=== PATIENT | female | born 1970 | race American Indian/Alaskan Native ===

== ENCOUNTER 2016-06-01 06:31 | Observation (INO) | payer BC ==
--- NOTE | 2016-05-31 08:39 | History and Physical Report ---
History of Present Illness Date of examination: 05/26/16 Chief complaint: Menorrhagia, uterine fibroids and endometrial mass History of present illness: Past History : 2 Term Births: 1 Living Children: 1 Elect. Ab: 1 # 1 Delivery type: PRIMER BOXER History Uterine Surgery (not C/S): negative Operations: Tubal Ligation Essure Hospitalizations: negative Anesthesia Complications: negative Abnormal PAP: positive Uterine Anomaly: negative MISAEL Exposure: negative Infertility: negative Infection History HIV Risk Eval: no Hep B Immunized: no TB exposure: no Personal hx. of genital herpes: no Partner hx. of genital herpes: no Rash/viral illness since LMP: no Hx of STD: HSV Active Medications: OXYCODONE-ACETAMINOPHEN 5-325 MG TABS (OXYCODONE-ACETAMINOPHEN) 1-2po q6h IBUPROFEN 800 MG TABS (IBUPROFEN) 1 po TID (PRN) Current Allergies (reviewed today): No known allergies Past Medical History: Reviewed history from 07/11/2015 and no changes required: Ulcerative colitis remission Past Surgical History: Reviewed history from 04/30/2011 and no changes required: Tubal Ligation Essure Family History Summary: Other family member - Has No Family History of Uterine Cancer - Entered On: 05/31 Other family member - Has No Family History of Stomach Cancer - Entered On: 05/31 Other family member - Has No Family History of Small Bowel Cancer - Entered On: 05/31/2016 Other family member - Has No Family History of Pancreatic Cancer - Entered On: Other family member - Has No Family History of Kidney/Urinary Tract Cancer - Entered On: 05/31/2016 Other family member - Has No Family History of Brain Cancer - Entered On: 2016 Other family member - Has No Family History of Biliary Tract Cancer - Entered On : 05/31/2016 General Comments - FH: No Family History of Breast Cancer No Family History of Colon Cancer No Family History of Ovarian Cancer No Family History of DVT/PE on OCP Social History: Reviewed history from 07/11/2015 and no changes required: Patient is Smoking History: Patient has never smoked. Risk Factors: Smoked Tobacco Use: Never smoker Alcohol use: no Mammogram History: Date of Last Mammogram: 07/22/2015 PAP Smear History: Date of Last PAP Smear: 07/11/2015 Previous Tobacco Use: Signed On - 04/21/2016 Smoked Tobacco Use: Never smoker Drug use: no HIV high-risk behavior: no Previous Alcohol Use: Signed On - 04/21/2016 Alcohol use: no Exercise: yes Times per week: 5 Type of Exercise: rarely Seatbelt use: 100 % Colonoscopy History: Date of Last Colonoscopy: 04/18/2012 Mammogram History: Date of Last Mammogram: 07/22/2015 PAP Smear History: Date of Last PAP Smear: 07/11/2015 Review of Systems General Denies fever, chills, sweats, anorexia, fatigue, weakness, malaise, weight loss and sleep disorder. Complains of menorrhagia. Denies vaginal discharge, incontinence, dysuria, hematuria, urinary frequency, amenorrhea, abnormal vaginal bleeding, pelvic pain, genital sores, decreased libido, painful periods, painful sex, urinary urgency, hot flashes, vaginal dryness, vaginal itching and vaginal odor. CV Denies chest pains, palpitations, syncope, dyspnea on exertion, orthopnea, PND and peripheral edema. Resp Denies cough, dyspnea at rest, excessive sputum, hemoptysis, wheezing and pleurisy. GI Denies nausea, vomiting, diarrhea, constipation, change in bowel habits, abdominal pain, melena, hematochezia, jaundice, gas/bloating, indigestion/ heartburn, dysphagia and odynophagia. Endo Denies cold intolerance, heat intolerance, polydipsia, polyphagia, polyuria and unusual weight change. Breast Denies left breast lump, right breast lump, nipple discharge, bloody discharge from nipple, breast pain, abnormal mammogram and breast enlargement. MS Denies back pain, joint pain, joint swelling, muscle cramps, muscle weakness, stiffness, arthritis, sciatica, restless legs, leg pain at night and leg pain with exertion. Derm Denies rash, itching, dryness and suspicious lesions. Neuro Denies paralysis, paresthesias, headache, seizures, tremors, vertigo, transient blindness, frequent falls, frequent headaches and difficulty walking. Psych Denies depression, anxiety, irritability and mood swings. Eyes Denies blurring, diplopia, irritation, discharge, vision loss, eye pain and photophobia. ENT Denies earache, ear discharge, tinnitus, decreased hearing, nasal congestion, nosebleeds, sore throat and hoarseness. Allergy Denies urticaria, allergic rash, hay fever and recurrent infections. Heme Denies abnormal bruising, bleeding and enlarged lymph nodes. Physical Exam Appearance: well developed, well nourished, no acute distress Other Exams Lungs: no rales, rhonchi, or wheezes Heart: S1, S2, no murmur, rub, or gallop Abdomen: soft, non-tender, no masses, bowel sounds normal Skin: no ulcers, xanthomas Lymph: no cervical, axillary, or inguinal adenopathy Extremities: normal alignment, no joint enlargement, crepitus, masses or tenderness; normal tone and strength Genitourinary Exam Vulva: normal, no lesions or discharge Urethral meatus: normal size and location, no lesions or discharge Urethra: no discharge Bladder: no cystocele Vagina: normal appearance, no discharge, lesions. No evidence of cystocele or rectocele. Cervix: normal appearance, no lesions, no discharge Uterus: normal position, midline, mobile Adnexa: no masses or tenderness Impression & Recommendations: Problem # 1: Excessive and frequent menstruation with irregular cycle (ICD- 626.6) (LAX27-O13.1) Her updated medication list for this problem includes: Ibuprofen 800 Mg Tabs (Ibuprofen) ..... 1 po tid (prn) Consent reviewed and signed . Possible laparoscopy or laparotomy explained to patient. The risks and alternatives for this surgery were reviewed with the patient. She was informed of possible bleeding, infection, injury to bowel, bladder, ureters or other adjacent organs.She desires ovarian conservation. She was informed she may require surgery later to have her ovaries removed for a benign or mailgnant condition The patient was instructed/informed the following: The normal length of hospital stay for this procedure. Nothing to eat or drink after midnight the evening prior to surgery. Clear liquids the day before surgery. Fleets enema the day prior to surgery. Pre-op instruction sheets given. Wound care instructions given. Infection precautions reviewed, patient to call for any signs or symptoms of infection. The usual discomforts associated with this procedure were detailed. Proper use of pain medicines was reviewed. Patient was given ample opportunity to have all her questions answered before signing informed consent. Problem # 2: Fibroids of uterus, Submucosal (ICD-218.0) (PIS99-T58.0) Her updated medication list for this problem includes: Oxycodone-acetaminophen 5-325 Mg Tabs (Oxycodone-acetaminophen) ..... 1-2po q6h Ibuprofen 800 Mg Tabs (Ibuprofen) ..... 1 po tid (prn) Problem # 3: Endometrial mass (ICD-236.0) (AYE66-N62.0) Medications Added to Medication List This Visit: 1) Oxycodone-acetaminophen 5-325 Mg Tabs (Oxycodone-acetaminophen) .... 1-2po q6h 2) Ibuprofen 800 Mg Tabs (Ibuprofen) .... 1 po tid (prn) Prescriptions: OXYCODONE-ACETAMINOPHEN 5-325 MG TABS (OXYCODONE-ACETAMINOPHEN) 1-2po q6h #30 x 0 Entered and Authorized by: Naomi Madrigal MD Method used: Print then Give to Patient RxID: [id number] IBUPROFEN 800 MG TABS (IBUPROFEN) 1 po TID (PRN) #30 x 1 Entered and Authorized by: Naomi Madrigal MD Method used: Print then Give to Patient Medications and Allergies Allergies Allergy/AdvReac Type Severity Reaction Status Date / Time No Known Allergies Allergy Unverified 05/26/16 13:59 Home Medications Medication Instructions Recorded Confirmed Last Taken Type No Known Home Medications [No 05/28/16 05/28/16 Unknown History Reported Home Medications] Assessment and Plan - Patient Problems (1) Excessive and frequent menstruation with irregular cycle Status: Acute (2) Neoplasm of uncertain behavior of endometrium Status: Acute (3) Submucous leiomyoma of uterus Status: Acute (4) Intramural leiomyoma of uterus Status: Acute
[2016-05-31 10:22] LABS: Hematocrit 35.9 % (30.3-42.9); Hemoglobin 11.5 gm/dl (10.1-14.3); Mean Corpuscular HGB Conc 32 % (30-34); Mean Corpuscular Volume 80 fl (79-97); Platelet Count 281 K/mm3 (140-440); Red Blood Count 4.48 M/mm3 (3.65-5.03); Red Cell Distribution Width 14.8 % (13.2-15.2); White Blood Count 8.2 K/mm3 (4.5-11.0)
--- NOTE | 2016-05-31 10:27 | Anesthesia Consultation ---
Anesthesia Consult and Med Hx Date of service: 05/31/16 - Airway Anesthetic Teeth Evaluation: Good, Caps, Crowns ROM Head & Neck: Adequate Mental/Hyoid Distance: Adequate Mallampati Class: Class II Intubation Access Assessment: Probably Good - Pulmonary Exam CTA: Yes - Cardiac Exam Cardiac Exam: RRR - Pre-Operative Health Status ASA Pre-Surgery Classification: ASA2 Proposed Anesthetic Plan: General Nerve Block: TAP - Pulmonary Hx Smoking: No Hx Asthma: No Hx Sleep Apnea: No - Cardiovascular System Hx Hypertension: No Hx Coronary Artery Disease: No - Central Nervous System Hx Seizures: No CVA: No Hx Psychiatric Problems: No - Gastrointestinal Hx Gastroesophageal Reflux Disease: Yes - Endocrine Hx Renal Disease: No Hx Cirrhosis: No Hx Insulin Dependent Diabetes: No - Hematic Hx Anemia: Yes - Other Systems Hx Cancer: No Hx Obesity: Yes
[2016-05-31 10:39] LABS: Mean Corpuscular Hemoglobin 26 pg (28-32)
[~2016-06-01 06:31] MED LIST: ANCEF/STERILE WATER 2 GM/20 ML 2 GM/20 ML SYRINGE IV NR; NACL 0.9% 1000 ML 1,000 ML IV SCH; NEURONTIN PO NR; PEPCID PO NR; TRANSDERM-SCOP TD NR; VERSED IV NR
[2016-06-01] MEDS ORDERED: DECADRON ONE ×2 (06:33→08:34)
[2016-06-01] MEDS ORDERED: XYLOCAINE 1% 20 mL ONE (06:33)
[2016-06-01] MEDS ORDERED: CLONIDINE 1,000 MCG/10 ML VIAL EP ONE (06:34)
[2016-06-01] MEDS ORDERED: MARCAINE-EPI/PF 0.5%-1:200,000 INFILTRATI ONE (06:34)
[2016-06-01] MEDS ORDERED: MARCAINE-EPI 0.5%-1:200,000 INFILTRATI ONE (06:34)
[2016-06-01] MEDS ORDERED: SUBLIMAZE ONE (07:10)
[2016-06-01] MEDS ORDERED: DIPRIVAN 10 MG/ML IV ONE (07:12)
[2016-06-01] MEDS ORDERED: ZEMURON IV ONE (07:18)
[2016-06-01] MEDS: SUBLIMAZE IV NR ×2 (07:19→07:21)
[2016-06-01] MEDS ORDERED: XYLOCAINE MPF 2% ONE (07:20)
--- NOTE | 2016-06-01 07:35 | Admit Criteria Form ---
Admission Criteria Documentation: AMBULATORY SURGERY EXCEPTION CRITERIA Ambulatory Surgery Exception Criteria ( Place 'X' for any and all applicable criteria): Surgery or procedure performed on ambulatory basis may require inpatient stay for[A] ANY ONE of the following(1)(2)(3)(4)(5)(6)(7)(8)(9): [X] I. A preoperative situation, condition, or finding that warrants inpatient stay as indicated by ANY ONE of the following: [X] a) Inpatient care needed because of severity of a disease or condition rather than the surgery (eg, severe cardiac or respiratory disease, severe infection) (15) (16 ) (17) (18) [] b) Emergent procedure (eg, angioplasty for acute ischemia)(19) [] c) Complex surgical approach or situation as indicated by ANY ONE of the following(3): [] i) Open approach needed instead of usual endoscopic, transcatheter, or other less invasive procedure [] ii) Difficult approach because of previous operation [] iii) Airway monitoring required after open neck procedures(20)(21) [] iv) Large mass requiring unusually extensive dissection [] v) Additional complicating feature requiring inpatient care (eg, drain management)(22(23): [] d) Major surgery in a pt with high anesthetic risk as indicated by ANY ONE of the following (2)(3)(5)(7)(8): [] i) ASA risk class III or higher (severe systemic disease impairing function) [D] [] ii) Advanced age (eg, older than 85 years)(14)(24) [] iii) Symptomatic heart failure(25) [] iv) Symptomatic asthma or COPD(8)(21) [] v) Morbid obesity with hemodynamic or respiratory problems(20)( 21)(26)(27) [] vi) Obstructive sleep apnea(20)(21) [] vii) Former premature infants who are younger than 60 weeks [] viii) High risk for severe postoperative abnormalities (eg, severe postoperative hypocalcemia after parathyroidectomy for severe hyperparathyroidism)(27)( 28) [] ix) Unstable angina(25) [] e) Drug-related risk requiring inpatient stay as indicated by ANY ONE of the following(5)(10)(14)(32)(33) [] i) Procedure requires discontinuing drugs or other therapy (eg , antiarrhythmic medication, antiseizure medication), which necessitates inpatient observation or treatment.(18)(31) [] ii) Major surgery and high risk drug use as indicated by ANY ONE of the following: [] 1) Active abuse of cocaine or similar drug [] 2) Monoamine oxidase inhibitor use [] 3) Other drug identified as posing risk [] f) Inadequate outpatient care situation as indicated by ANY ONE of the following(5)(10)(14)(32)(33) [] i) Patient lives remote from medical facility and procedure has urgent complication potential, and temporary nearby residence cannot be arranged [] ii) Patient will have postprocedure incapacitation and inadequate assistance at home, or alternative level of care cannot be arranged. [] iii) Patient will have long general anesthesia or procedure side effect resolution time, and competent person to stay with patient on first postoperative night at home or alternative level of care cannot be arranged. []iv) Other inadequate outpatient situation that cannot be handled by other means [] II. A perioperative event, condition, or finding that warrants inpatient stay as indicated by ANY ONE of the following (1)(2)(3): [] a) Inadequate physiologic recovery: cardiovascular, respiratory, or hemodynamic status not normal or near preoperative baseline(18) [] b) Hemodynamic instability [] c) Patient not alert with near normal or baseline mental status [] d) Temperature not normal or as expected and not appropriate for outpatient treatment of condition [] e) Ambulatory or appropriate activity level status not yet achieved post procedure [E](34)(35)(36) [] f) Operative site not appropriate (eg, unexpected or excessive drainage or bleeding) [] g) Postoperative effects not resolved or adequately managed (eg, significant pain or vomiting not appropriate for outpatient or next level of care)(10)(12) [] h) Complicating features requiring inpatient care as indicated by ANY ONE of the following(37): [] i) Severe complications of procedure (eg, bowel injury, airway compromise, vascular injury,severe hemorrhage) [] ii) Extensive (eg, dissection far beyond usual scope of procedure ) or prolonged (eg, 120 minutes beyond usual) surgery needed requiring inpatient postoperative care [] iii) Conversion to an open or complex procedure that requires inpatient care (eg, open vs laparoscopic cholecystectomy, abdominal vs vaginal hysterectomy)(38) [] iv) Comorbid condition or test result identified during or post procedure that requires inpatient care (7) [] v) Malignant hyperthermia(30) [] vi) Other complicating feature requiring inpatient care(22)(23) Inpatient stay may be needed until ALL of the following are present (1)(2)(3)(4) (5)(6)(10)(14)(33)(40): []a) Physiologic recovery: cardiovascular, respiratory, and hemodynamic status normal or near preoperative baseline []b) Hemodynamic stability []c) Patient alert, with near normal or baseline mental status []d) Temperature appropriate: patient afebrile or temperature appropriate for outpt treatment of condition []e) Activity level appropriate: ambulatory or appropriate activity level post procedure []f) Operative site appropriate as indicated by ALL of the following: []i) Site dry or with expected drainage []ii) Any blood noted is as expected for procedure. []g) Postoperative effects resolved or managed as indicated by ALL of the following: []i) Pain management appropriate for outpatient (or next level of) care(10) []ii) Minimal nausea and vomiting: if present, successfully treated with oral medication(12) []iii) Headache, dizziness, or drowsiness (if present) are mild. []h) Voiding status acceptable as indicated by ANY ONE of the following: []i) Voiding spontaneously []ii) No voiding but instructions given for follow-up in 6 to 8 hours []iii) Urinary catheter in place, and instructions given for follow-up []i) Complicating features requiring inpatient care manageable at a lower level of care(37) []j) Comorbid conditions manageable at a lower level of care(37) The original [employer] content created by [employer] has been revised. The portions of the content which have been revised are identified through the use of italic text or in bold, and [employer] has neither reviewed nor approved the modified material. All other unmodified content is copyright [employer]. Please see references footnoted in the original [employer] edition 2016 Admission Criteria Met: Yes
[2016-06-01] MEDS ORDERED: DILAUDID ONE (08:26)
[2016-06-01] MEDS ORDERED: DILAUDID IV PRN (08:29)
[2016-06-01] MEDS ORDERED: ZOFRAN ONE (08:34)
[2016-06-01] MEDS ORDERED: NEOSPORIN GU IR ONE (09:11)
[2016-06-01] MEDS ORDERED: WATER FOR IRRIG STERILE IR ONE (09:11)
[2016-06-01] MEDS ORDERED: NACL 0.9% IR ONE (09:12)
[2016-06-01] MEDS ORDERED: METHYLENE BLUE IV ONE (09:33)
[2016-06-01] MEDS ORDERED: NEOSTIGMINE ONE ×2 (09:38)
[2016-06-01] MEDS ORDERED: ROBINUL ONE ×2 (09:38)
[2016-06-01] MEDS ORDERED: TORADOL ONE (10:30)
--- NOTE | 2016-06-01 10:39 | Operative Report ---
Operative Report Operative Report: Date of procedure: 06/01/2016 Pre-operative diagnosis: 1. Excessive and heavy uterine bleeding 2. Uterine fibroids 3. Endometrial mass Post-operative diagnosis: 1. Excessive and heavy uterine bleeding 2. Uterine fibroids 3. Endometrial mass 4. Phlebolith Procedure name(s): 1. Robotic-assisted total hysterectomy 2. Bilateral salpingectomy Surgeon: Naomi Madrigal MD Account Support Rep: Rowdy Turner Anesthesia: General anesthesia Findings: Grossly normal tubes and ovaries. Uterus was sounded to 8 cm. Examination under anesthesia revealed uterine size to be approximately 10 cm and no adnexal masses were palpated. A benign appearing phlebolith. No obvious bowel, bladder or ureteral injury noted. Anesthesiologist: Dr. Srinivasa Watkins Complications: None EBL: 75 mL Procedure: After risks, benefits, complications, consequences, and alternatives for this procedure were discussed the patient, and she voiced understanding and desired to proceed, she was taken to the OR where general anesthesia was induced. She was placed in the dorsolithotomy position, exam under anesthesia was unremarkable. She was then prepped and draped in usual sterile fashion. Timeout was performed. Llanes catheter was introduced into the bladder. A bivalve speculum was introduced into the vagina, and the anterior lip of the cervix was grasped with a single-tooth tenaculum. The uterus was sounded to approximately 8 cm. The cervix was progressively dilated to allow the large the V care uterine manipulator. The tenaculum and speculum were removed and the Vcare manipulator was secured in place. A solution saturated laparotomy sponge was placed in the vagina. Sterile gloves were placed and attention was turned to the abdomen. A 10mm Optiview trocar with scope and camera attached was placed through a midline vertical incision was approximately 10 cm superior to the elevated fundus of the uterus. The trocar with camera attached was placed under direct visualization. No bowel, bladder, ureteral or major blood vessel injury was noted. The abdomen was insufflated. Patient was placed in steep Trendelenburg position. Additional trocars were placed in the following positions: 8 mm robotic trocars were placed in the bilateral midclavicular lower abdominal region approximately 10 cm lateral to the midline incision. An additional 5 mm trocar was placed in the right lateral lower abdominal region approximately 2 cm superior to the anterior superior iliac crest. A 5 mm scope was introduced through the lateral trocar, the 10 mm trocar was removed and the Memo-Portia fascia closure device was introduced through the incision. 0 Vicryl suture was placed to the fascia and stabilized with a hemostat then the 10 mm trocar was reintroduced under direct visualization. Once the trocars were in the proper position the robot was engaged. The instruments were introduced into the 8 mm trochars. Attention was turned to console. The uterus was elevated, the utero-ovarian ligaments were clamped, cauterized and incised bilaterally using 30 W of energy. Then the round ligaments were clamped, cauterized and incised bilaterally. The anterior leaf of the broad ligament was elevated with both blunt and sharp dissection the bladder flap was created. Once the bladder appeared to be away from the operative field attention was turned the posterior leaf of the broad ligaments. The ligaments were elevated and dissected away from the uterine vessels. Once the outline of the [employer] uterine manipulator was visualized, the uterine vessels were clamped and cauterized bilaterally. Once blanching of the uterus was noted, and the posterior outline of the Vcare manipulator was visualized, and confirmed, colpotomy was performed down to the cup of the manipulator. This incision was extended in a circumferential manner to 9:00 and 3:00 positions. The uterine vessels were clamped, cauterized and incised. The colpotomy was completed. The uterus was then delivered through the vagina. Attention was turned to the adnexa. Grossly normal ovaries and the remaining tubes were noted. Bilateral salpingectomy was then performed. The tubes were removed through the lateral 5 mm trocar. The pelvis was irrigated with solution warm saline. Once hemostasis was noted the vagina was reapproximated using the V LOC 180 suture. The pelvis was again irrigated with warm normal saline. Methylene blue was given to ensure the integrity of both ureters. Drainage of blue urine was noted into the Llanes catheter but not into the pelvis or abdomen. The ureters were noted to be peristaltic without any obvious injury noted. The abdomen and pelvis were again visualized, no bowel, bladder, ureteral or major vascular injury was noted, hemostasis was also noted. Kallie was placed on the operative field for hemostasis. The trocars were removed. The fascial incision was then ligated. The skin incisions were approximated using 4-0 Vicryl in a subcuticular manner. The incisions were then sealed with Octylseal.The laparotomy sponge was removed from the vagina, and hemostasis was noted. The patient tolerated the procedure well and was taken to recovery room in stable condition. Counts were correct x3. Clear yellow urine was noted draining into the Llanes catheter was noted.
--- NOTE | 2016-06-01 11:01 | Anesthesia Day of Surgery ---
Anesthesia Day of Surgery - Day of Surgery Patient Examined: Yes Patient H&P Reviewed: Yes Patient is NPO: Yes
--- NOTE | 2016-06-01 11:01 | Post Anesthesia Evaluation ---
- Post Anesthesia Evaluation Patient Participated: Yes Airway Patent: Yes Stable Respiratory Function: Yes Nausea/Vomiting: No Temp > 96.8F: Yes Pain Manageable: Yes Adequeate Hydration: Yes Anesthesia Complications: No Block Receding Appropriately: Not Applicable Patient on Ventilator: No
[2016-06-01] MEDS ORDERED: ZOFRAN PO PRN (12:15)
[2016-06-01] MEDS ORDERED: ZOFRAN IV PRN (12:15)
[2016-06-01] MEDS ORDERED: PERCOCET 5/325 PO PRN (12:15)
[2016-06-01] MEDS ORDERED: REGLAN IV PRN (12:15)
[2016-06-01] MEDS ORDERED: MILK OF MAGNESIA PO PRN (12:15)
[2016-06-01] MEDS ORDERED: DULCOLAX PR PRN (12:15)
[2016-06-01] MEDS ORDERED: MORPHINE IV PRN ×2 (12:15)
[2016-06-01] MEDS ORDERED: PHENERGAN PR PRN (12:15)
[2016-06-01] MEDS ORDERED: PROTONIX IV SCH (12:15)
[2016-06-01] MEDS ORDERED: NARCAN 0.4 MG/1 ML IV PRN (12:15)
[2016-06-01] MEDS: LACTATED RINGERS 1,000 ML IV SCH ×2 (13:15→20:15)
[2016-06-01] MEDS: TORADOL IV SCH ×2 (16:20→22:35)
[2016-06-01] MEDS: ANCEF/NS 1 GM/50 ML 1 GM/50 ML BAG IV SCH (20:16)
[2016-06-01] MEDS ORDERED: COLACE PO SCH (22:00)
[2016-06-01] MEDS: TYLENOL PO SCH (22:35)
--- NOTE | 2016-06-02 01:40 | Event Note ---
Date: 06/01/16 Patient was seen earlier, the operative findings and procedure were explained. Questions were answered, expected course of hospitalization discussed,she voiced understanding and agrees with plan of care
[2016-06-02] MEDS: TYLENOL PO SCH (03:50)
[2016-06-02] MEDS: TORADOL IV SCH (03:50)
[2016-06-02] MEDS: ANCEF/NS 1 GM/50 ML 1 GM/50 ML BAG IV SCH (04:16)
[2016-06-02] MEDS: LACTATED RINGERS 1,000 ML IV SCH (04:17)
[2016-06-02 07:51] LABS: Hematocrit 31.1 % (30.3-42.9); Hemoglobin 9.9 gm/dl (10.1-14.3)
[2016-06-02 08:52] VITALS: BP 116/65
--- NOTE | 2016-06-02 08:55 | Discharge Summary ---
Providers - Providers Date of Admission: 06/01/16 10:29 Date of discharge: 06/02/16 Attending physician: BEVERLEY AGUIRRE Primary care physician: CHARBEL RAMON Hospitalization Condition: Good Procedures: RATH/(B) salpingectomy Hospital course: uncomplicated Disposition: DISCHARGED TO HOME OR SELFCARE - Discharge Diagnoses (1) Excessive and frequent menstruation with irregular cycle Status: Resolved (2) Neoplasm of uncertain behavior of endometrium Status: Resolved (3) Submucous leiomyoma of uterus Status: Resolved (4) Intramural leiomyoma of uterus Status: Resolved Core Measure Documentation - Palliative Care Palliative Care/ Comfort Measures: Not Applicable - Core Measures Any of the following diagnoses?: none Exam - Constitutional Vitals: Temp Pulse Resp BP Pulse Ox 98.4 F 78 20 106/63 100 06/02/16 04:00 06/02/16 04:00 06/02/16 04:00 06/02/16 04:00 06/01/16 11:45 General appearance: Present: no acute distress - Respiratory Respiratory effort: normal Respiratory: bilateral: CTA - Cardiovascular Rhythm: regular - Extremities Extremities: no ischemia, No edema - Abdominal General gastrointestinal: Present: soft, non-tender, non-distended, normal bowel sounds Female genitourinary: Present: deferred - Rectal Rectal Exam: deferred - Integumentary Integumentary: Present: clear, warm, dry - Musculoskeletal Musculoskeletal: strength equal bilaterally - Psychiatric Psychiatric: appropriate mood/affect, intact judgment & insight, cooperative Plan Activity: other (ambulate on your property ~1mile a day, drink ~64oz water a day , void frequently, no sex, no driving x1week) Weight Bearing Status: Non-Weight Bearing Diet: regular Wound: open to air, keep clean and dry Special Instructions: no heavy lifting Additional Instructions: Call my office for any problems or concerns Follow up with: BEVERLEY AGUIRRE MD [Staff Physician] - (as scheduled)
[2016-06-02] MEDS ORDERED: TYLENOL PO SCH (10:00)
--- NOTE | 2016-06-02 10:51 | Progress Note ---
Subjective Date of service: 06/02/16 Interval history: 1st POD after hysterectomy Patient is comfortable. Pain is very well under control. No nausea or vomiting. No anesthesia complications Objective - Constitutional Vitals: Vital Signs - 12hr 06/02/16 06/02/16 06/02/16 00:00 04:00 08:40 Temperature 98.9 F 98.4 F 97.9 F Pulse Rate [ 64 78 82 Right Brachial] Respiratory 18 20 16 Rate Blood Pressure 101/55 106/63 116/65 [Right Arm] - Labs CBC & Chem 7: 06/02/16 06:57 Labs: Abnormal lab results 06/02/16 Range/Units 06:57 Hgb 9.9 L (10.1-14.3) gm/dl
== END 2016-06-02 10:32 | disposition home or self-care (01) ==
LOC: OR 06:31 → OB 10:29
PROVIDERS: ADMIT Obstetrics & Gynecology; ATTEND Obstetrics & Gynecology
DX: D25.0 Submucous leiomyoma of uterus (principal); D39.0 Neoplasm of uncertain behavior of uterus; D25.1 Intramural leiomyoma of uterus; N92.1 Excessive and frequent menstruation with irregular cycle; Z98.51 Tubal ligation status
CPT/HCPCS: 36415; 58571; 64450; 81025; 85014; 85018; 85027; 86850; 86900; 86901; 88305; 88307; 88342; 96365; 96375; 96376; A4217; G0378; J0690; J0735; J1100; J1170; J1885; J2250; J2405; J2704; J2710; J3010; J7030; J7120; Q9968

== ENCOUNTER 2016-06-23 13:33 | Outpatient (CLI) | payer BC ==
--- NOTE | 2016-06-23 14:43 | Mammography Report ---
Bilateral digital diagnostic mammogram with CAD. History: The patient's prior mammogram performed on July 22, 2015, further work up of an asymmetric density seen in the CC projection of the right breast was recommended, but the patient did not comply. Today's study demonstrates resolution of the previously noted asymmetry which may be due to different degree of compression or position. There is no evidence of architectural distortion or suspicious calcifications in the right breast. The left breast demonstrates 2 small parenchymal asymmetries in the upper breast which are stable and have benign features. No other focal findings are seen. Impression: No suspicious findings. BI-RADS code: 2. Recommendation: Annual screening.
== END 2016-06-23 13:34 | disposition home or self-care (01) ==
LOC: MAMMO 13:33
PROVIDERS: ATTEND Obstetrics & Gynecology
DX: N64.89 Other specified disorders of breast (principal)
CPT/HCPCS: 77066; G0204

== ENCOUNTER 2016-12-17 07:15 | Outpatient (CLI) | payer BC ==
--- NOTE | 2016-12-17 08:46 | Fluoroscopy Report ---
BARIUM SWALLOW: History: Dysphagia. The patient swallows barium without difficulty demonstrating normal coordination. The cervical and thoracic portions of the esophagus demonstrate normal contours and there is normal peristalsis. There is no evidence of a hiatus hernia and no reflux is demonstrated. The patient was able to swallow a barium pill without difficulty. IMPRESSION: Normal study.
== END 2016-12-17 07:16 | disposition home or self-care (01) ==
LOC: FLUORO 07:15
PROVIDERS: ATTEND Specialist
DX: R13.19 Other dysphagia (principal)
CPT/HCPCS: 74220

== ENCOUNTER 2017-07-22 12:47 | Outpatient (CLI) | payer BC ==
--- NOTE | 2017-07-22 14:07 | Mammography Report ---
Screening bilateral tomomammogram and 2-D compiled mammogram: The 2-D images demonstrates a heterogeneously dense and generally symmetrically distributed fibroglandular pattern. There is a circumscribed nodule in the superomedial left breast. A partially circumscribed nodule is noted superiorly in the superolateral left breast. These findings appear unchanged compared to her prior exam in June 2016. Tomomammograms in CC and lateral projections confirm the presence of circumscribed nodules in the left breast with no nodules in the right breast. There are no new findings provided by the tomomammograms. CAD used. Impression: Stable exam. No suspicious findings. Recommend patient on Annual mammogram followup. BI-RADS CATEGORY: 2 = Benign ACR BI-RADS MAMMOGRAPHIC CODES: 0 = Needs additional imaging evaluation; 1 = Negative; 2 = Benign; 3 = Probably benign; 4 = Suspicious; 5 = Malignant; 6 = Known biopsy-proven malignancy COMMENT: 1. Dense breast tissue, i.e., adenosis, fibrocystic changes, etc., may obscure an underlying neoplasm. 2. Approximately 10% of cancers are not detected with mammography. 3. A negative mammography report should not delay biopsy if a clinically suspicious mass is present.
== END 2017-07-22 12:48 | disposition home or self-care (01) ==
LOC: MAMMO 12:47
PROVIDERS: ATTEND Obstetrics & Gynecology
DX: Z12.31 Encounter for screening mammogram for malignant neoplasm of breast (principal)
CPT/HCPCS: 77063; 77067

== ENCOUNTER 2018-09-08 14:44 | Outpatient (CLI) | payer BC ==
--- NOTE | 2018-09-08 15:20 | Mammography Report ---
LEFT DIGITAL DIAGNOSTIC MAMMOGRAM : 09/08/18 14:44:00 CLINICAL: Recalled for asymmetries. COMPARISON:07/31/18 screening FINDINGS: Additional mammographic views were performed and are negative. IMPRESSION: Negative Mammogram. BI-RADS CATEGORY: 1 -- Negative RECOMMENDATION: Routine mammographic screening in one year. COMMENT: 1. Dense breast tissue, i.e., adenosis, fibrocystic changes, etc., may obscure an underlying neoplasm. 2. Approximately 10% of cancers are not detected with mammography. 3. A negative mammography report should not delay biopsy if a clinically suspicious mass is present. COMMENT: Patient follow-up letters are generated via our [employer] application.
== END 2018-09-08 14:45 | disposition home or self-care (01) ==
LOC: MAMMO 14:44
PROVIDERS: ATTEND Obstetrics & Gynecology
DX: R92.8 Other abnormal and inconclusive findings on diagnostic imaging of breast (principal); K21.9 Gastro-esophageal reflux disease without esophagitis; E66.9 Obesity, unspecified

== ENCOUNTER 2019-08-30 07:34 | Outpatient (CLI) | payer BC ==
--- NOTE | 2019-08-30 09:30 | Mammography Report ---
DIGITAL SCREENING MAMMOGRAM WITH CAD, 08/30/2019 INDICATION: Routine screening mammography. TECHNIQUE: Digital bilateral 2D mammography was obtained in the craniocaudal and mediolateral obliq ue projections. This examination was interpreted with the benefit of Computer-Aided Detection analysi s. COMPARISON: 07/31/2018. FINDINGS: Breast Density: There are scattered areas of fibroglandular density. There is no evidence of dominant mass, suspicious calcifications or architectural distortion in eithe r breast. Stable left sided nodularity. IMPRESSION: Follow up recommendation: Routine yearly BI-RADS Category 2: Benign. A "normal" or negative report should not discourage follow up or biopsy of a clinically significant f inding. A written summary of these findings will be mailed to the patient. The patient will be entered into a mammography reporting system which will generate a reminder letter for the patient's next appointmen t at the appropriate interval. The [employer] recommends yearly mammograms starting at age 40 and continuing as l pamela as a woman is in good health. Breast MRI is recommended for women with an approximate 20-25% or greater lifetime risk of breast cancer, including women with a strong family history of breast or ova ady cancer or who have been treated for Hodgkin's disease. Signer Name: Emmanuel Ledesma MD Signed: 08/30/2019 9:26 AM Workstation Name: [email or web address]
== END 2019-08-30 07:35 | disposition home or self-care (01) ==
LOC: MAMMO 07:34
PROVIDERS: ATTEND Obstetrics & Gynecology
DX: Z12.31 Encounter for screening mammogram for malignant neoplasm of breast (principal)
CPT/HCPCS: 77067